=== PATIENT | male | born 1970 | race Caucasian/White ===

== ENCOUNTER 2017-05-24 06:30 | Emergency (ER) | payer OTHER ==
[~2017-05-24] VITALS: Ht 185.4 cm; Wt 102.5 kg
[2017-05-24 06:33] VITALS: BP 119/80
== END 2017-05-24 07:02 | disposition home or self-care (01) ==
LOC: ED 06:30
DX: N61.1 Abscess of the breast and nipple (principal); E11.9 Type 2 diabetes mellitus without complications; F17.210 Nicotine dependence, cigarettes, uncomplicated; Z71.6 Tobacco abuse counseling
CPT/HCPCS: 82962; 99406; J1815

== ENCOUNTER 2017-05-24 07:25 | Emergency (ER) | payer OTHER ==
[~2017-05-24] VITALS: Ht 185.4 cm; Wt 84.8 kg
[2017-05-24 08:00] LABS: BASOPHIL % 0.5 % (0-2); PLATELET COUNT 265 x10^3mcL (130-400); RED CELL DISTRIBUTION WIDTH 12.2 % (11.5-14.5)
[2017-05-24 08:13] LABS: CALCIUM 8.9 mg/dL (8.5-10.1); CARBON DIOXIDE 27.1 mmol/L (21-32); CHLORIDE SERUM 105 mmol/L (98-107); CREATININE SERUM 1.1 mg/dL (0.7-1.3); GFR1 > 60 mL/min; GLUCOSE SERUM 212 mg/dL (74-106); POTASSIUM SERUM 4.3 mmol/L (3.5-5.1); SODIUM SERUM 141 mmol/L (136-145)
[2017-05-24 08:20] LABS: ALBUMIN 3.4 g/dL (3.4-5.0); ALKALINE PHOSPHATASE 103 U/L (46-116); ALT/SGPT 32 U/L (16-63); AST/SGOT 26 U/L (15-37); BILIRUBIN TOTAL 0.35 mg/dL (0.20-1.00); TOTAL PROTEIN, SERUM 7.3 g/dL (6.4-8.2)
[2017-05-24 08:52] LABS: AMPHETAMINE QUAL UR NONE DETECTED (NEG <=1000)
[2017-05-24 08:56] LABS: UA SPECIFIC GRAVITY >=1.030 (1.005-1.035); microscopic required? YES; urine erythrocyte TRACE (NEGATIVE)
[2017-05-24 18:59] VITALS: BP 103/65
== END 2017-05-24 18:30 ==
LOC: ED 07:25
PROVIDERS: Emergency Medicine
DX: R45.851 Suicidal ideations (principal); R44.0 Auditory hallucinations; R44.1 Visual hallucinations; L02.213 Cutaneous abscess of chest wall; E11.9 Type 2 diabetes mellitus without complications; F17.210 Nicotine dependence, cigarettes, uncomplicated; Z71.6 Tobacco abuse counseling
CPT/HCPCS: 82962; 99406; G0480; J7030

== ENCOUNTER 2017-06-08 11:00 | Inpatient (IN) | payer OTHER ==
[~2017-06-08] VITALS: Ht 185.4 cm; Wt 105.7 kg
[2017-06-08 13:04] LABS: BASOPHIL % 0.4 % (0-2); PLATELET COUNT 243 x10^3mcL (130-400); RED CELL DISTRIBUTION WIDTH 12.2 % (11.5-14.5)
[2017-06-08 13:15] LABS: CALCIUM 8.3 mg/dL (8.5-10.1); CARBON DIOXIDE 27.4 mmol/L (21-32); CHLORIDE SERUM 107 mmol/L (98-107); CREATININE SERUM 0.8 mg/dL (0.7-1.3); GFR1 > 60 mL/min; GLUCOSE SERUM 208 mg/dL (74-106); POTASSIUM SERUM 4.2 mmol/L (3.5-5.1); SODIUM SERUM 139 mmol/L (136-145)
[2017-06-08 13:21] LABS: ALBUMIN 3.4 g/dL (3.4-5.0); ALKALINE PHOSPHATASE 111 U/L (46-116); ALT/SGPT 61 U/L (16-63); AST/SGOT 33 U/L (15-37); BILIRUBIN TOTAL 0.3 mg/dL (0.20-1.00); TOTAL PROTEIN, SERUM 6.7 g/dL (6.4-8.2)
[2017-06-08 14:29] LABS: microscopic required? NO
[2017-06-08 14:39] LABS: urine erythrocyte NEGATIVE (NEGATIVE)
[2017-06-08 14:47] LABS: AMPHETAMINE QUAL UR POSITIVE (NEG <=1000)
[2017-06-08] MEDS ORDERED: PROZAC10 M2 (17:46)
[2017-06-08] MEDS ORDERED: METFORMIN HYDR500 M1 (17:46)
[2017-06-08] MEDS ORDERED: LANTUS SOLOS100 U/M1 (17:46)
[2017-06-08 18:37] VITALS: BP 112/71
[2017-06-08 18:43] VITALS: Ht 185.4 cm; Wt 105.7 kg
[2017-06-08 20:00] VITALS: BP 119/74
[2017-06-08 20:09] LABS: MAGNESIUM 2.2 mg/dL (1.8-2.4); PHOSPHOROUS 3.5 mg/dL (2.5-4.9)
[2017-06-08 20:15] LABS: CHOLESTEROL/HDL RATIO 4.7
[2017-06-08 20:18] LABS: T3 TOTAL 1.33 ng/mL
[2017-06-08 20:41] LABS: FREE T4 1.13 ng/dL (0.76-1.46); FREE THYROXINE INDEX 3.2 ug/dL (1.4-4.5); T4(THYROXINE) 8.5 ug/dL (4.7-13.3)
[2017-06-09 04:48] VITALS: BP 103/65
[2017-06-09 08:57] VITALS: BP 93/72
[2017-06-09 12:09] VITALS: BP 104/68
[2017-06-09 16:13] VITALS: BP 100/70
[2017-06-09 20:56] VITALS: BP 102/60
[2017-06-10 05:36] VITALS: BP 103/73
[2017-06-10 06:39] LABS: BASOPHIL % 0.4 % (0-2); PLATELET COUNT 226 x10^3mcL (130-400)
[2017-06-10 06:42] LABS: CALCIUM 8.4 mg/dL (8.5-10.1); CARBON DIOXIDE 24.9 mmol/L (21-32); CHLORIDE SERUM 108 mmol/L (98-107); CREATININE SERUM 0.7 mg/dL (0.7-1.3); GFR1 > 60 mL/min; GLUCOSE SERUM 137 mg/dL (74-106); MAGNESIUM 1.7 mg/dL (1.8-2.4); PHOSPHOROUS 4.6 mg/dL (2.5-4.9); POTASSIUM SERUM 3.9 mmol/L (3.5-5.1); SODIUM SERUM 141 mmol/L (136-145)
[2017-06-10 07:51] VITALS: BP 103/72
[2017-06-10 17:09] VITALS: BP 109/75
[2017-06-10 22:55] VITALS: BP 121/83
[2017-06-11 05:41] VITALS: BP 112/82
[2017-06-11 08:33] VITALS: BP 104/71
[2017-06-11 17:27] VITALS: BP 102/66
[2017-06-11 20:45] VITALS: BP 105/63
[2017-06-12 05:14] VITALS: BP 118/81
[2017-06-12 08:26] VITALS: BP 111/80
[2017-06-12 09:11] VITALS: BP 109/74
[2017-06-12 13:06] VITALS: BP 102/61
[2017-06-12 17:27] VITALS: BP 110/69
[2017-06-12 22:03] VITALS: BP 114/67
[2017-06-13 06:19] VITALS: BP 107/71
[2017-06-13 07:56] VITALS: BP 107/76
[2017-06-13] MEDS ORDERED: PROZ20 PO (12:26)
[2017-06-13] MEDS ORDERED: SERO100 PO (12:26)
[2017-06-13] MEDS ORDERED: OSCD PO (12:26)
[2017-06-13] MEDS ORDERED: MAG PO (12:27)
[2017-06-13] MEDS ORDERED: METFORMIN HCL1000 MG PO (12:27)
[2017-06-13] MEDS ORDERED: HUMULIN R100 U/1 M1 SC (12:27)
[2017-06-13] MEDS ORDERED: GLU5 PO (12:28)
[2017-06-13] MEDS ORDERED: THERA TABS1 TAB PO (12:28)
[2017-06-13 12:34] VITALS: BP 97/60
[2017-06-13 13:09] VITALS: BP 97/60
== END 2017-06-13 14:36 | DRG 751 ==
LOC: ED 11:00 → MU 17:41 → DU 17:41 → MU 06-09 14:43
PROVIDERS: Emergency Medicine; Student in an Organized Health Care Education/Training Program; ADMIT Family Medicine Sports Medicine
DX: F33.3 Major depressive disorder, recurrent, severe with psychotic symptoms (principal); G92 Toxic encephalopathy; D68.69 Other thrombophilia; E11.65 Type 2 diabetes mellitus with hyperglycemia; E83.42 Hypomagnesemia; R45.851 Suicidal ideations; E83.51 Hypocalcemia; T43.621A Poisoning by amphetamines, accidental (unintentional), initial encounter; M25.562 Pain in left knee; F17.210 Nicotine dependence, cigarettes, uncomplicated; Z79.4 Long term (current) use of insulin; Y92.009 Unspecified place in unspecified non-institutional (private) residence as the place of occurrence of the external cause
CPT/HCPCS: 82962; 84439; G0480; J7030; Q0092

== ENCOUNTER 2017-06-26 15:29 | Inpatient (IN) | payer OTHER ==
[~2017-06-26] VITALS: Ht 185.4 cm; Wt 101.2 kg
[~2017-06-26 15:29] MED LIST: GLU5 PO; HUMULIN R100 U/1 M1 SC; LANTUS SOLOS100 U/M1; MAG PO; METFORMIN HCL1000 MG PO; METFORMIN HYDR500 M1; OSCD PO; PROZ20 PO; PROZAC10 M2; SERO100 PO; THERA TABS1 TAB PO
[2017-06-26 16:08] LABS: BASOPHIL % 0.9 % (0-2); PLATELET COUNT 293 x10^3mcL (130-400); RED CELL DISTRIBUTION WIDTH 12.6 % (11.5-14.5)
[2017-06-26 16:15] LABS: CALCIUM 8.7 mg/dL (8.5-10.1); CARBON DIOXIDE 26.8 mmol/L (21-32); CHLORIDE SERUM 104 mmol/L (98-107); CREATININE SERUM 0.9 mg/dL (0.7-1.3); GFR1 > 60 mL/min; GLUCOSE SERUM 153 mg/dL (74-106); POTASSIUM SERUM 3.6 mmol/L (3.5-5.1); SODIUM SERUM 139 mmol/L (136-145)
[2017-06-26 16:26] LABS: ALKALINE PHOSPHATASE 88 U/L (46-116); ALT/SGPT 32 U/L (16-63); AST/SGOT 17 U/L (15-37); BILIRUBIN TOTAL 0.46 mg/dL (0.20-1.00); T4(THYROXINE) 8.8 ug/dL (4.7-13.3); TOTAL PROTEIN, SERUM 7.7 g/dL (6.4-8.2)
[2017-06-26 16:31] LABS: AMPHETAMINE QUAL UR NONE DETECTED (NEG <=1000)
[2017-06-26 16:32] LABS: microscopic required? NO
[2017-06-26 16:36] LABS: UA SPECIFIC GRAVITY 1.025 (1.005-1.035); urine erythrocyte NEGATIVE (NEGATIVE)
[2017-06-26 22:26] LABS: MAGNESIUM 2.1 mg/dL (1.8-2.4); PHOSPHOROUS 5.1 mg/dL (2.5-4.9)
[2017-06-27 05:44] LABS: BASOPHIL % 0.5 % (0-2); PLATELET COUNT 266 x10^3mcL (130-400); RED CELL DISTRIBUTION WIDTH 12.5 % (11.5-14.5)
[2017-06-27 05:54] LABS: CALCIUM 8.5 mg/dL (8.5-10.1); CARBON DIOXIDE 26.9 mmol/L (21-32); CHLORIDE SERUM 108 mmol/L (98-107); CREATININE SERUM 0.8 mg/dL (0.7-1.3); GFR1 > 60 mL/min; GLUCOSE SERUM 146 mg/dL (74-106); POTASSIUM SERUM 3.8 mmol/L (3.5-5.1); SODIUM SERUM 142 mmol/L (136-145)
[2017-06-27 15:00] VITALS: BP 99/69
[2017-06-27 21:30] VITALS: BP 97/58
[2017-06-28 05:53] VITALS: BP 103/72
[2017-06-28 06:13] LABS: BASOPHIL % 0.5 % (0-2); PLATELET COUNT 240 x10^3mcL (130-400); RED CELL DISTRIBUTION WIDTH 12.8 % (11.5-14.5)
[2017-06-28 06:45] LABS: CARBON DIOXIDE 27.1 mmol/L (21-32); CHLORIDE SERUM 107 mmol/L (98-107); CREATININE SERUM 0.8 mg/dL (0.7-1.3); GFR1 > 60 mL/min; GLUCOSE SERUM 108 mg/dL (74-106); MAGNESIUM 1.7 mg/dL (1.8-2.4); PHOSPHOROUS 4.7 mg/dL (2.5-4.9); POTASSIUM SERUM 3.9 mmol/L (3.5-5.1); SODIUM SERUM 143 mmol/L (136-145)
[2017-06-28 09:34] VITALS: BP 95/50
[2017-06-28 14:18] VITALS: BP 102/62
[2017-06-28 16:36] VITALS: BP 102/62
[2017-06-28 20:45] VITALS: BP 92/65
[2017-06-29 05:58] VITALS: BP 95/62
[2017-06-29 06:43] LABS: BASOPHIL % 0.2 % (0-2); PLATELET COUNT 234 x10^3mcL (130-400); RED CELL DISTRIBUTION WIDTH 12.3 % (11.5-14.5)
[2017-06-29 06:52] LABS: CARBON DIOXIDE 28.2 mmol/L (21-32); CHLORIDE SERUM 105 mmol/L (98-107); CREATININE SERUM 0.8 mg/dL (0.7-1.3); GFR1 > 60 mL/min; GLUCOSE SERUM 93 mg/dL (74-106); MAGNESIUM 1.8 mg/dL (1.8-2.4); PHOSPHOROUS 4.7 mg/dL (2.5-4.9); POTASSIUM SERUM 3.8 mmol/L (3.5-5.1); SODIUM SERUM 140 mmol/L (136-145)
[2017-06-29 08:00] VITALS: BP 101/63
[2017-06-29 17:30] VITALS: BP 101/63
[2017-06-29 17:39] VITALS: BP 106/71
== END 2017-06-29 19:40 | DRG 756 ==
LOC: ED 15:29 → DU 21:31 → MU 06-28 23:31
PROVIDERS: Emergency Medicine; ADMIT Family Medicine
DX: R44.0 Auditory hallucinations (principal); G92 Toxic encephalopathy; D68.69 Other thrombophilia; F33.3 Major depressive disorder, recurrent, severe with psychotic symptoms; R45.851 Suicidal ideations; E11.65 Type 2 diabetes mellitus with hyperglycemia; F20.9 Schizophrenia, unspecified; E66.2 Morbid (severe) obesity with alveolar hypoventilation; T43.226A Underdosing of selective serotonin reuptake inhibitors, initial encounter; T43.596A Underdosing of other antipsychotics and neuroleptics, initial encounter; T43.621A Poisoning by amphetamines, accidental (unintentional), initial encounter; F15.23 Other stimulant dependence with withdrawal; F10.20 Alcohol dependence, uncomplicated; F17.210 Nicotine dependence, cigarettes, uncomplicated; M25.562 Pain in left knee; G89.29 Other chronic pain; D64.9 Anemia, unspecified; Z68.29 Body mass index [BMI] 29.0-29.9, adult; E66.3 Overweight; Z79.84 Long term (current) use of oral hypoglycemic drugs; Z79.4 Long term (current) use of insulin; Y90.0 Blood alcohol level of less than 20 mg/100 ml; Y92.009 Unspecified place in unspecified non-institutional (private) residence as the place of occurrence of the external cause
CPT/HCPCS: 82962; 83880; G0480; J1815; J2060; J7030; J7040; Q0092

== ENCOUNTER 2017-08-24 16:39 | Emergency (ER) | payer OTHER ==
[~2017-08-24] VITALS: Ht 185.4 cm; Wt 103.9 kg
[2017-08-24 16:48] VITALS: Ht 185.4 cm; Wt 103.9 kg
[2017-08-24 17:38] LABS: CALCIUM 8.3 mg/dL (8.5-10.1); CARBON DIOXIDE 21.3 mmol/L (21-32); CHLORIDE SERUM 105 mmol/L (98-107); CREATININE SERUM 0.9 mg/dL (0.7-1.3); GFR1 > 60 mL/min; GLUCOSE SERUM 312 mg/dL (74-106); POTASSIUM SERUM 3.9 mmol/L (3.5-5.1); SODIUM SERUM 141 mmol/L (136-145)
[2017-08-24 17:43] LABS: ALBUMIN 3.4 g/dL (3.4-5.0); ALKALINE PHOSPHATASE 95 U/L (46-116); ALT/SGPT 44 U/L (16-63); BILIRUBIN TOTAL 0.31 mg/dL (0.20-1.00); TOTAL PROTEIN, SERUM 6.6 g/dL (6.4-8.2)
[2017-08-24 17:46] LABS: BASOPHIL % 0.5 % (0-2); PLATELET COUNT 225 x10^3mcL (130-400); RED CELL DISTRIBUTION WIDTH 12.5 % (11.5-14.5)
[2017-08-24 17:51] LABS: AMPHETAMINE QUAL UR NONE DETECTED (NEG <=1000)
[2017-08-24 19:34] LABS: AST/SGOT 22 U/L (15-37)
[2017-08-25 02:50] VITALS: BP 124/74
== END 2017-08-25 02:50 ==
LOC: ED 16:39
PROVIDERS: Emergency Medicine
DX: R45.851 Suicidal ideations (principal); R44.1 Visual hallucinations; E11.9 Type 2 diabetes mellitus without complications
CPT/HCPCS: 82962; G0480; J1815; J2060; J7030; Q0092